=== PATIENT | male | born 1990 | race Caucasian/White ===

== ENCOUNTER 2020-09-09 08:37 | Emergency (ER) | payer MEDICAID, OTHER ==
[~2020-09-09] VITALS: Ht 182.9 cm; Wt 80.7 kg
[2020-09-09 08:43] VITALS: BP_SYST 139
[2020-09-09] MEDS ORDERED: ONDANSETRON 4 MG ODT TAB PO ONE (09:00)
[2020-09-09] MEDS ORDERED: KETOROLAC TROMETHAMINE 60 MG/2 ML VIAL IM ONE (09:00)
[2020-09-09 09:48] VITALS: BP_SYST 139
== END 2020-09-09 09:48 | disposition home or self-care (01) ==
LOC: SED 08:37
DX: S39.012A Strain of muscle, fascia and tendon of lower back, initial encounter (principal); X50.3XXA Overexertion from repetitive movements, initial encounter; Y93.89 Activity, other specified; Y92.89 Other specified places as the place of occurrence of the external cause; Y99.8 Other external cause status
CPT/HCPCS: 96372; 99283; J1885

== ENCOUNTER 2021-08-30 07:47 | Emergency (ER) | payer MEDICAID, OTHER ==
[~2021-08-30] VITALS: Ht 182.9 cm; Wt 77.1 kg
--- NOTE | 2021-08-30 08:00 | NUR ---
Patient to ER bed 6 to gown for evaluation. Side rails up. Report given to CECE Lobo.
[2021-08-30 08:03] VITALS: BP_SYST 123
--- NOTE | 2021-08-30 08:05 | NUR ---
Pt walked in to ER with c/o back pain s/p work injury 3 days ago. V/S stable, no acute distress noted.
--- NOTE | 2021-08-30 08:10 | NUR ---
ER Dr. Patiño at bedside examining patient.
[2021-08-30] MEDS: KETOROLAC TROMETHAMINE 60 MG/2 ML VIAL IM ONE (08:29)
--- NOTE | 2021-08-30 08:34 | NUR ---
MEDICATED ORDERED, PT CALM, ALERT, GUARDED MOVEMENTS
[2021-08-30] MEDS ORDERED: METH-634 PO (08:49)
[2021-08-30] MEDS ORDERED: IBUP-1969 PO (08:49)
[2021-08-30 09:27] VITALS: BP_SYST 120
--- NOTE | 2021-08-30 09:28 | NUR ---
Patient given written and verbal discharge instructions and verbalizes understanding. ER MD discussed with patient the results and treatment provided. Patient in stable condition. ID arm band removed. . Rx of IBU given. Patient educated on pain management and to follow up with PMD. Pain Scale 2/10 Opportunity for questions provided and answered. Medication side effect fact sheet provided.
== END 2021-08-30 09:28 | disposition home or self-care (01) ==
LOC: SED 07:47
DX: S39.012A Strain of muscle, fascia and tendon of lower back, initial encounter (principal); X50.0XXA Overexertion from strenuous movement or load, initial encounter; Y93.89 Activity, other specified; Y92.89 Other specified places as the place of occurrence of the external cause; Y99.8 Other external cause status
CPT/HCPCS: 72100; 96372; 99283; J1885